=== PATIENT | male | born 1950 | race Caucasian/White ===

== ENCOUNTER 2025-06-28 12:44 | Emergency (ER) | payer MEDICARE, OTHER ==
[2025-06-28 13:08] VITALS: BP 138/75; PULSE 59
== END 2025-06-28 14:19 | disposition home or self-care (01) ==
LOC: JP.ED 12:44
DX: S51.011A Laceration without foreign body of right elbow, initial encounter (principal); Z88.8 Allergy status to other drugs, medicaments and biological substances; Z79.84 Long term (current) use of oral hypoglycemic drugs; Z79.899 Other long term (current) drug therapy; W19.XXXA Unspecified fall, initial encounter
CPT/HCPCS: 99282